=== PATIENT | male | born 1970 | race African-American/Black ===

== ENCOUNTER → 2020-02-29 | Outpatient (CLI) | payer OTHER ==
[~2020-02-29] MED LIST: ASPIR 8181 MG PO
== END ==
LOC: CV 10-11 12:29 → SJCVCIMAG 14:57
PROVIDERS: ATTEND Internal Medicine Cardiovascular Disease
DX: I07.1 Rheumatic tricuspid insufficiency (principal); Z86.79 Personal history of other diseases of the circulatory system